=== PATIENT | female | born 2000 | race Caucasian/White ===

== ENCOUNTER 2025-02-27 18:49 | Emergency (ER) | payer OTHER, SELFPAY ==
[2025-02-27 19:05] VITALS: BP 108/64; PULSE 71; RESP 20; TEMP 37.3; O2SAT 98
--- NOTE | 2025-02-27 19:16 | ED_ITS ---
HPI - Wound/Laceration General Chief Complaint: Wound/Laceration Stated Complaint: Dog Bite Time Seen by Provider: 02/27/25 19:16 Source: patient Mode of arrival: ambulatory Limitations: no limitations History of Present Illness HPI narrative: 24-year-old female presents with dog bite to right hand. 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 Did inform police and did please report. Range of motion and distal neurovascularly intact. Patient reports tetanus is up-to-date. All systems reviewed and negative except as noted above. Review of Systems Review of Systems: CONSTITUTIONAL: Denies fever, chills, or sweats. EYES: Denies visual changes, redness, or discharge. ENT: Denies rhinorrhea, congestion, sore throat, or otalgia. CARDIOVASCULAR: Denies chest pain, palpitations, or edema. RESPIRATORY: Denies cough or dyspnea. GASTROINTESTINAL: Denies abdominal pain, nausea, vomiting, or diarrhea. GENITOURINARY: Denies dysuria or hematuria. SKIN: Denies rash or itching. Reports dog bite to right hand MUSCULOSKELETAL: Denies back pain, joint pain, or myalgia. NEUROLOGIC: Denies headache, numbness, or weakness. PSYCHIATRIC: Denies anxiety or depression. All other systems reviewed are negative, except as documented in HPI. PMFSH Comments At time of signature, agree with nursing past medical, surgical, social and family history. There is no relevant family history pertinent to the presenting complaint. Exam Narrative: GENERAL: This is a well-nourished, well-developed patient, in no apparent distress. HEAD: normocephalic, atraumatic. EYES: PERRL. Sclera clear/white. Vision is grossly intact. EARS: External ears normal NOSE: External nose normal NECK: Neck supple, non-tender without lymphadenopathy, masses or thyromegaly. CARDIOVASCULAR: Regular rate and rhythm without murmurs, gallops, or rubs. RESPIRATORY: Clear to auscultation. Breath sounds equal bilaterally. No wheezes, rales, or rhonchi. SKIN: warm, Dry, intact with no suspicious lesions or rash, good texture and turgor. 2 puncture wounds noted to webbing right hand between thumb and index finger. Bleeding controlled. No signs of infection. Range of motion and distal neurovascularly intact to right hand. NEURO: awake, alert, and oriented to person, place and time. There were no obvious focal neurologic abnormalities. EXTREMITIES: No joint tenderness, effusion, or edema noted. Course Course Level of Care: Express Care Visit Vital Signs Vital signs: Vital Signs Temperature 37.3 C 02/27/25 19:05 Pulse Rate 71 02/27/25 19:05 Respiratory Rate 20 02/27/25 19:05 Blood Pressure 108/64 02/27/25 19:05 Pulse Oximetry 98 02/27/25 19:05 Oxygen Delivery Room Air 02/27/25 19:05 Temperature 37.3 C 02/27/25 19:05 Pulse Rate 71 02/27/25 19:05 Respiratory Rate 20 02/27/25 19:05 Blood Pressure 108/64 02/27/25 19:05 Pulse Oximetry 98 02/27/25 19:05 Oxygen Delivery Room Air 02/27/25 19:05 Review MDM - Wound/Laceration MDM Narrative Medical decision making narrative: will treat patient with Augmentin for wound infection prevention from a dog bite wound. Differential Diagnosis Differential diagnosis: Likely laceration, abrasion, avulsion of skin and other ( Dog bite) Discharge Plan Discharge Clinical Impression: Dog bite of right hand Patient Disposition: Home Condition: Stable Instructions: Antibiotic Form, Animal Bite (ED) Additional Instructions: take antibiotic as prescribed until gone. Keep wound clean and dry. If you have signs of infection such as redness, warmth, swelling, increasing pain go to the ER. Patient Language: Faroese Prescriptions: New amoxicillin-pot clavulanate 875-125 mg tablet 1 tablet PO Q12H 7 Days Qty: 14 0RF Follow-up/Referrals: PHYSICIAN,DOCTOR OF MEDICINE [Primary Care Provider] - Stand Alone Forms: Work/School Release IP Time of Disposition: 19:22
== END 2025-02-27 19:40 | disposition home or self-care (01) ==
PROVIDERS: Emergency Provider Nurse Practitioner Family
DX: S61.431A Puncture wound without foreign body of right hand, initial encounter (principal); W54.0XXA Bitten by dog, initial encounter; Y99.0 Civilian activity done for income or pay
CPT/HCPCS: 99213; G0463